=== PATIENT | male | born 1985 | race Two or more races ===

== ENCOUNTER 2018-01-25 22:48 | Emergency (ER) | payer SELFPAY ==
[~2018-01-25] VITALS: Ht 182.9 cm; Wt 90.7 kg
[2018-01-25 22:52] VITALS: BP 97/44
[2018-01-25] MEDS ORDERED: Naloxone 1mg/ml 2ml IVP ONE (23:15)
--- NOTE | 2018-01-25 23:50 | Emergency Room Report ---
History of Present Illness General Chief Complaint: Overdose Source: Patient, EMS Present Illness HPI Is a 32-year-old male brought in as an overdose. His friend called 911 because he was hallucinating and very agitated. He has a history of heroin and methamphetamine abuse. Because of his agitation, EMS gave him 5 mg of versed. Now he sleeping and sedated. Unable to get any other history other than from EMS. There was no other trauma. Allergies: Coded Allergies: No Known Allergies (Unverified , 01/25/18) Patient History Past Medical History: see triage record, old chart reviewed Past Surgical History: none Pertinent Family History: none Social History: Reports: smoking, alcohol use, drug use Immunizations: other Reviewed Nursing Documentation: PMH: Agreed; PSxH: Agreed Nursing Documentation-PMH Past Medical History: No History, Except For Review of Systems All Other Systems: limited - secondary to mental status Physical Exam Vital Signs Date Time Temp Pulse Resp B/P (MAP) Pulse Ox O2 Delivery O2 Flow Rate FiO2 01/25/18 22:49 130 22 116/88 98 Non-Rebreather 01/25/18 22:52 15.0 01/25/18 22:52 97.2 97.2 Sp02 EP Interpretation: reviewed, normal General Appearance: well appearing, no apparent distress, alert, other - sleepy Head: normocephalic, atraumatic Eyes: bilateral eye PERRL, bilateral eye EOMI, bilateral eye other - pinpoint ENT: hearing grossly normal, normal pharynx Neck: full range of motion, supple, no meningismus Respiratory: chest non-tender, lungs clear, normal breath sounds Cardiovascular #1: regular rate, rhythm, no murmur Gastrointestinal: normal bowel sounds, non tender, no mass, no organomegaly, no bruit, non-distended Musculoskeletal: back normal, normal range of motion Neurologic: grossly normal Skin: warm/dry Medical Decision Making Diagnostic Impression: Primary Impression: Drug overdose Qualified Codes: T50.901A - Poisoning by unspecified drugs, medicaments and biological substances, accidental (unintentional), initial encounter Additional Impressions: Heroin overdose Qualified Codes: T40.1X1A - Poisoning by heroin, accidental (unintentional), initial encounter Psychosis Qualified Codes: F23 - Brief psychotic disorder ER Course Patient presents with initially with acute psychosis from drug abuse/overdose. He received Versed. Now he has very slow sonorous respiration. This is probably from the opioid overdose. Respiratory status improve after Narcan. We 'll observe until clinical sobriety. 6am: pt is now awake. A&Ox3. Said he was "partying" last night. was using heroin and crystal. will dc home. No criteria for 5150. This patient is a chronic risk of self injury due to poor impulse control, limited coping skills, and judgment intermittently impaired by intoxication. I believe that the available clinical evidence to suggest that these characteristics derived primarily from personality disorder and are likely very stable over time. Hospitalization would likely attenuate risk of self-harm only during senior living period, without lasting risk reduction. Serious self-harm , while possible, would likely be inadvertent, and because of impulsivity, and foreseeable. For these reasons, I do not believe hospitalization would provide meaningful reduction in risk of self-harm. Last Vital Signs Date Time Temp Pulse Resp B/P (MAP) Pulse Ox O2 Delivery O2 Flow Rate FiO2 01/25/18 22:52 97.2 115 17 97/44 98 Non-Rebreather 97.2 01/25/18 22:52 15.0 Status: improved Disposition: HOME, SELF-CARE Condition: Improved Additional Instructions: Stop using drugs. Follow-up with rehabilitation in 7 days. Follow-up with your doctor in 7 days. Return if worse. HAILEE REGAN M.D. January 25, 2018 23:50
[2018-01-26] MEDS ORDERED: Haloperidol 5mg/ml Inj ONE (00:21)
[2018-01-26] MEDS ORDERED: Haloperidol 5mg/ml Inj IM ONE (00:30)
[2018-01-26 02:34] VITALS: BP 140/81
[2018-01-26 04:11] VITALS: BP 117/54
[2018-01-26 05:09] VITALS: BP 110/76
[2018-01-26 05:59] VITALS: BP 110/76
== END 2018-01-26 06:15 | disposition home or self-care (01) ==
LOC: EDBD 22:48 → EMR 23:48
DX: T40.1X1A Poisoning by heroin, accidental (unintentional), initial encounter (principal); F29 Unspecified psychosis not due to a substance or known physiological condition; F17.200 Nicotine dependence, unspecified, uncomplicated
CPT/HCPCS: 96372; 96374; 96375; 99283; J1630; J2310